=== PATIENT | male | born 1955 | race Caucasian/White ===

== ENCOUNTER 2017-04-10 14:37 | Inpatient (IN) ==
[2017-04-10 12:45] VITALS: BMI 19.8
[2017-04-10] MEDS: SALINE FLUSH 10ml SYRINGE IV PRN ×2 (13:24→16:10)
[~2017-04-10 14:37] MED LIST: NS 1,000 ML IV ONE
[2017-04-10] MEDS ORDERED: ACETAMINOPHEN 325 MG TABLET PO PRN (14:39)
--- NOTE | 2017-04-10 14:51 | History & Physical Report ---
History of Present Illness Date: 04/10/17 Chief complaint: cough, fever, shortness of breath HPI: Tunde is a 61-year-old male who is a direct admit from Dr. Acosta's office. He has known COPD and was found to have an abnormality on his chest x-ray prompting a CT scan of his chest in January. He was treated with 2 weeks of antibiotics and steroids and repeat CT showed a slight decrease in the abnormality, but given that it persisted, he was set up for lung biopsy. He had his lung biopsy scheduled yesterday the procedure was canceled because he had a fever. Today he started feeling worse and went to see Dr. Acosta. He states initially he felt like his symptoms which started a few weeks ago, were typical for COPD exacerbation, but with his fever and with the dark brown phlegm he's been producing, he was concerned for infection. His O2 sats have been in the mid 80s and he was found to have a temp 101.2 in the office. He was directly admitted from Dr. Acosta's office for probable influenza. Review of Systems All systems PM: 10-point ROS was reviewed, no additional remarkable complaints except (fever, weakness, chills, productive cough, shortness of breath, dysuria) Past Medical History Medical History COPD Abnormal CT chest - lung biopsy pending BPH Depression Surgical History: R knee surgery early . left elbow surgery in 1994. Heart cath-negative (11/07) Family History: Father-living, alcoholism, prostate cancer Mother-alive and well Brother-prostate cancer Family History Updates: Updated - Social History Smoking status: Current every day smoker (assessment since age 17. Currently smokes 10 cigarettes per day) Substance use type: does not use Alcohol intake frequency: does not drink Housing: house Household members: spouse, family ([id number]. 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 Medications Home Medications Medication Instructions Recorded Confirmed Type albuterol sulfate HFA 90 2 puff INH PRN PRN 16 Days #18 09/05/16 04/10/17 History mcg/actuation aerosol inhaler Albuterol Sulfate 1.25 mg INH Q6H PRN 04/10/17 04/10/17 History Doxazosin [Cardura] 4 tab PO DAILY 04/10/17 04/10/17 History beclomethasone dipropionate 80 2 puff INH BID 30 Days #87 04/10/17 04/10/17 History mcg/actuation aerosol inhaler Allergies Allergy/AdvReac Type Severity Reaction Status Date / Time propoxyphene Allergy Mild stomach Verified 04/10/17 11:18 [From Darvocet-N 100] cramping Exam Vital Signs: Temperature 102.1 F H 04/10/17 12:43 Pulse Rate 102 H 04/10/17 13:27 Respiratory Rate 20 04/10/17 13:27 Blood Pressure 122/82 04/10/17 13:27 Pulse Oximetry 95 04/10/17 13:27 Height/Weight/BMI: Height 1.68 m Weight 55.8 kg Body Mass Index 19.8 - Constitutional Present: no acute distress, well developed, thin - Routine HEENT Exam Head: Present: normocephalic, atraumatic Eye: Present: EOMI. Absent: periorbital swelling ENT: Present: nares patent, external ear normal - Routine Neck Exam Present: supple. Absent: lymphadenopathy, thyromegaly - Routine Respiratory Exam Present: decreased breath sounds, wheezes, diminished air movement - Routine Cardiovascular Exam Present: tachycardia (mild). Absent: murmur - Routine Abdominal Exam Present: soft, normoactive bowel sounds, non distended. Absent: tenderness - Routine Extremities Exam Present: no edema, normal capillary refill - Routine Skin Exam Present: dry, warm - Routine Neurological Exam Present: alert, oriented X3 CN III-XII intact - Routine Psychiatric Exam Present: normal affect, cooperative Results - Labs CBC & Chem 7: 04/10/17 15:01 04/10/17 15:01 Assessment and Plan (1) COPD exacerbation Current visit: Yes Status: Acute Assessment and Plan: Assessment Sepsis as manifested by a pulmonary source of infection and SIRS criteria of temp of 102.1 and tachycardia. Influenza B COPD exacerbation with acute hypoxia RUL pulmonary nodule - lung biopsy pending Dysuria BPH Depression Plan Admit inpatient status to the hospitalist service for COPD exacerbation with hypoxia, Dr. Ferreira attending. Respiratory panel pending. Sputum culture. Tamiflu 75 twice a day 5 days Solu-Medrol 125 mg IV every 8 hours, DuoNeb and budesonide nebulizer treatments , Acapella for respiratory symptoms. RT consult for smoking cessation. CBC, CMP, lactate, pro calcitonin, urinalysis for laboratory workup. MiraLAX for bowel motivation. Patient was bolused a liter of normal saline and continues at 75 mL per hour. SCDs and Lovenox for VTE prophylaxis Protonix IV for GI prophylaxis given steroid use. Patient wishes to be a full code. Care to return to Dr. Acosta on dismissal DVT Prophylaxis: SCD's, Lovenox GI Prophylaxis: Protonix Resuscitation Status: Full Code - Physician Narrative Physician: Hali Ferreira MD Narrative: Date: 04/10/17 Time: 2044 I have independently evaluated and examined this patient. I reviewed the chart, the patient's history, and the [employer]/PA's documented findings as above. We discussed and formulated the assessment and plan as above with additions as below: Mr. Garcia was seen with his at bedside. Case was discussed with Dr. Acosta earlier in the day. Patient and/or his report that he's been ill for about a week but fevers escalated significantly over the past 2 days. He describes dyspnea, cough, sputum production. Cough is forceful enough to cause lightheadedness and chest wall/abdominal muscle pain. He describes generalized myalgias and loss of appetite with illness. Temperature in the office today was 101.2 and oxygen saturation was 85% on room air although patient has no history of chronic hypoxia or need for supplemental oxygen. On arrival at the hospital oxygen saturation was 86% on room air. Temperature on admission was 102.1 increasing to 103.2 3 hours later. Patient is alert and cooperative but appears uncomfortable; oropharynx with white plaques consistent with thrush Respirations are nonlabored with decreased airflow, there is diffuse generalized wheezing; crackles are not appreciated Regular rhythm, S1-S2, low-grade tachycardia present Extremities without edema Chest x-ray reviewed by myself-consistent with COPD but no infiltrate or evidence of failure, faint nodule evident in the right upper lobe-radiology reports it smaller (now measuring 1 cm) than it was on prior film in January. Influenza B +; sputum Gram stain with moderate neutrophils and many gram- positive cocci resembling strep pneumo UA with trace ketones and +2 occult blood Calcium 7.8 with albumin 3.6, lactic acid 0.9, procalcitonin < 0.05 Indications plans outlined above-initiate Clotrimazole troches for thrush and Rocephin for probable strep pneumo bronchitis pending full identification. Discussed with Dr. Acosta. Hospital Course Summary Disclaimer: The visit summary below is not to be considered part of the above Progress Note. Hospital Course: Assessment Sepsis as manifested by a pulmonary source of infection and SIRS criteria of temp of 102.1 and tachycardia. Influenza B COPD exacerbation with hypoxia RUL nodule - lung biopsy pending Dysuria BPH Depression Thrush 04/10/17-hospital admission Admit inpatient status to the hospitalist service for COPD exacerbation with hypoxia, Dr. Ferreira attending. Respiratory panel pending. Sputum culture suggests strep pneumonia-Rocephin initiated. Tamiflu 75 twice a day 5 days Solu-Medrol 125 mg IV every 8 hours, DuoNeb and budesonide nebulizer treatments , Acapella for respiratory symptoms. RT consult for smoking cessation. CBC, CMP, lactate, pro calcitonin, urinalysis for laboratory workup. MiraLAX for bowel motivation. Mycelex troches for thrush. Patient was bolused a liter of normal saline and continues at 75 mL per hour. SCDs and Lovenox for VTE prophylaxis Protonix IV for GI prophylaxis given steroid use. Patient wishes to be a full code. Care to return to Dr. Acosta on dismissal
[2017-04-10] MEDS: NS 1,000 ML IV SCH (15:27)
[2017-04-10] MEDS: METHYLPREDNISOLONE SOD SUCC 125mg/2ml INJECTION IVP SCH ×2 (15:27→22:05)
[2017-04-10] MEDS: ALBUTEROL/IPRATROPIUM 2.5mg-0.5mg/3ml NEB AEROSOL SCH ×2 (15:47→20:35)
[2017-04-10] MEDS: PANTOPRAZOLE 40 MG INJECTION IVP SCH (16:09)
[2017-04-10] MEDS ORDERED: IBUPROFEN 600 MG TABLET PO PRN (17:21)
[2017-04-10] MEDS: CLOTRIMAZOLE 10 MG TROCHE MM SCH ×2 (18:23→22:06)
[2017-04-10] MEDS: BUDESONIDE INH.SOLN 0.5mg/2ml NEB AEROSOL SCH (20:35)
[2017-04-10] MEDS ORDERED: CEFTRIAXONE 1 G in NS 100 ML IV SCH (21:15)
[2017-04-11] MEDS: NS 1,000 ML IV SCH ×2 (05:42→20:29)
[2017-04-11] MEDS: ALBUTEROL/IPRATROPIUM 2.5mg-0.5mg/3ml NEB AEROSOL SCH ×4 (06:32→19:46)
[2017-04-11] MEDS: BUDESONIDE INH.SOLN 0.5mg/2ml NEB AEROSOL SCH ×2 (06:33→19:46)
[2017-04-11] MEDS: METHYLPREDNISOLONE SOD SUCC 125mg/2ml INJECTION IVP SCH ×3 (07:31→22:21)
[2017-04-11] MEDS: PANTOPRAZOLE 40 MG INJECTION IVP SCH (09:37)
[2017-04-11] MEDS: CEFTRIAXONE 1 G in NS 100 ML IV SCH (09:38)
[2017-04-11] MEDS: DOXAZOSIN 4 MG TABLET PO SCH (09:38)
[2017-04-11] MEDS: CLOTRIMAZOLE 10 MG TROCHE MM SCH ×5 (09:39→21:44)
[2017-04-11] MEDS: POLYETHYL GLYCOL 3350 17gm PACKET PO SCH (09:40)
[2017-04-11] MEDS: SERTRALINE 100 MG TABLET PO SCH (09:40)
[2017-04-11] MEDS: ENOXAPARIN 40 MG/0.4 ML INJECTION SQ SCH (11:03)
--- NOTE | 2017-04-11 11:09 | Progress Note ---
- Date 04/11/17 Subjective: Patient is seen sitting in bed eating breakfast. He looks much better. He does feel better but continues to have problems with his breathing. Continues on 2 L of oxygen. No chest pain, nausea or vomiting. Fever broke last evening. Objective Vital signs: Temperature 96.3 F L 04/11/17 08:05 Pulse Rate 73 04/11/17 08:05 Respiratory Rate 22 04/11/17 10:49 Blood Pressure 115/68 04/11/17 08:05 Pulse Oximetry 97 04/11/17 10:49 Height/Weight/BMI: Height 1.68 m Weight 55.5 kg Body Mass Index 19.8 - Constitutional Present: well nourished, well developed, thin - Routine HEENT Exam Head: Present: normocephalic, atraumatic - Routine Respiratory Exam Present: decreased breath sounds, wheezes (expiratory. He is moving air much better today.) - Routine Cardiovascular Exam Present: RRR. Absent: murmur - Routine Abdominal Exam Present: soft, normoactive bowel sounds, non distended. Absent: tenderness - Routine Extremities Exam Present: no edema, normal capillary refill - Routine Skin Exam Present: dry, warm - Routine Neurological Exam Present: alert, oriented X3 - Routine Lymphatic Exam Lymphatic: Absent: adenopathy - Routine Psychiatric Exam Present: normal affect, cooperative Results - Labs CBC & Chem 7: 04/11/17 05:43 04/11/17 05:43 Microbiology Results: Microbiology 04/10/17 15:49 Sputum, Expectorated Gram Stain - Final 04/10/17 15:49 Sputum, Expectorated Sputum Culture - Preliminary Early growth 04/10/17 15:30 Peripheral/Iv Start Blood Culture - Preliminary Culture Initiated - Results Pending 04/10/17 15:33 Peripheral/Iv Start Blood Culture - Preliminary Culture Initiated - Results Pending Assessment and Plan (1) COPD exacerbation Current visit: Yes Status: Acute Assessment and Plan: Assessment Sepsis as manifested by a pulmonary source of infection and SIRS criteria of temp of 102.1 and tachycardia. Influenza B Possible strep pneumoniae based on sputum gram stain-sputum culture pending COPD exacerbation with acute hypoxia RUL pulmonary nodule - lung biopsy pending Dysuria BPH Depression Plan Sputum with gram stain shows many gram-positive cocci resembling strep pneumoniae. Patient was given a dose of Rocephin 1 g last evening and this will be continued daily until sputum culture is resulted. Continue breathing treatments, Tamiflu and IV steroids. May consider decreasing steroid dose later today or tomorrow. Add guaifenesin and hypertonic saline per nebulizer for secretion mobilization. Labs reviewed. Vital signs stable. DVT Prophylaxis: Lovenox Resuscitation Status: Full Code - Physician Narrative Physician: Hali Ferreira MD Narrative: Date: 04/11/17 Time: 2129 I have independently evaluated and examined this patient. I reviewed the chart, the patient's history, and the EMERGENCY REGISTRAR/PA's documented findings as above. We discussed and formulated the assessment and plan as above with additions as below: Tunde continues to have exertional dyspnea and some wheezing with cough. Fever has resolved and achiness/myalgias are improved although not entirely corrected. He remains on 1.5-2 L supplemental oxygen. NAD, alert Respirations are nonlabored with good airflow but diffuse wheezing persists Regular rhythm, no edema Sputum culture as previously noted-suspicious for strep pneumonia based on Gram stain 13% bands on differential today Begin titrating steroids and oxygen; day 2 Tamiflu. Discontinue IV PPI --> Pepcid Hospital Course Summary Disclaimer: The visit summary below is not to be considered part of the above Progress Note. Hospital Course: Assessment Sepsis as manifested by a pulmonary source of infection and SIRS criteria of temp of 102.1 and tachycardia. Influenza B COPD exacerbation with hypoxia RUL nodule - lung biopsy pending Dysuria BPH Depression Thrush 04/10/17-hospital admission Admit inpatient status to the hospitalist service for COPD exacerbation with hypoxia, Dr. Ferreira attending. Respiratory panel pending. Sputum culture suggests strep pneumonia-Rocephin initiated. Tamiflu 75 twice a day 5 days Solu-Medrol 125 mg IV every 8 hours, DuoNeb and budesonide nebulizer treatments , Acapella for respiratory symptoms. RT consult for smoking cessation. CBC, CMP, lactate, pro calcitonin, urinalysis for laboratory workup. MiraLAX for bowel motivation. Mycelex troches for thrush. Patient was bolused a liter of normal saline and continues at 75 mL per hour. SCDs and Lovenox for VTE prophylaxis Protonix IV for GI prophylaxis given steroid use. Patient wishes to be a full code. Care to return to Dr. Acosta on dismissal 04/11/17 Sputum with gram stain shows many gram-positive cocci resembling strep pneumoniae. Patient was given a dose of Rocephin 1 g last evening and this will be continued daily until sputum culture is resulted. Continue breathing treatments, Tamiflu and IV steroids. May consider decreasing steroid dose later today or tomorrow. Add guaifenesin and hypertonic saline per nebulizer for secretion mobilization.
[2017-04-11] MEDS: GUAIFENESIN LA 600 MG TABLET PO SCH ×2 (12:03→21:44)
[2017-04-11] MEDS: SODIUM CL 7% INHAL. SOLN 4ml NEB AEROSOL SCH ×2 (17:01→19:46)
[2017-04-12] MEDS: METHYLPREDNISOLONE SOD SUCC 125mg/2ml INJECTION IVP SCH (06:16)
[2017-04-12] MEDS: BUDESONIDE INH.SOLN 0.5mg/2ml NEB AEROSOL SCH ×2 (06:36→19:46)
[2017-04-12] MEDS: ALBUTEROL/IPRATROPIUM 2.5mg-0.5mg/3ml NEB AEROSOL SCH ×4 (06:36→19:46)
[2017-04-12] MEDS: SODIUM CL 3% INHAL.SOLN 15ml NEB AEROSOL SCH ×2 (06:36→19:46)
[2017-04-12] MEDS: POLYETHYL GLYCOL 3350 17gm PACKET PO SCH ×2 (09:43→09:57)
[2017-04-12] MEDS: CLOTRIMAZOLE 10 MG TROCHE MM SCH ×5 (09:44→22:05)
[2017-04-12] MEDS: ENOXAPARIN 40 MG/0.4 ML INJECTION SQ SCH (09:44)
[2017-04-12] MEDS: DOXAZOSIN 4 MG TABLET PO SCH (09:44)
[2017-04-12] MEDS: SERTRALINE 100 MG TABLET PO SCH (09:45)
[2017-04-12] MEDS: GUAIFENESIN LA 600 MG TABLET PO SCH ×2 (09:45→22:04)
[2017-04-12] MEDS: FAMOTIDINE 20 MG TABLET PO SCH ×2 (09:45→22:05)
[2017-04-12] MEDS: CEFTRIAXONE 1 G in NS 100 ML IV SCH (09:46)
[2017-04-12] MEDS: NS 1,000 ML IV SCH (09:59)
--- NOTE | 2017-04-12 12:08 | Progress Note ---
- Date 04/12/17 Subjective: Feeling a little better but still short of air, weak, muscle aches. Eating okay. Not getting up and around much. Objective Vital signs: Temperature 95.7 F L 04/12/17 08:41 Pulse Rate 73 04/12/17 08:41 Respiratory Rate 18 04/12/17 10:26 Blood Pressure 121/71 04/12/17 08:41 Pulse Oximetry 95 04/12/17 10:26 Height/Weight/BMI: Height 1.68 m Weight 57.4 kg Body Mass Index 19.8 - Constitutional Present: no acute distress, obese, cooperative - Routine HEENT Exam Head: Present: normocephalic, atraumatic Eye: Present: PERRL. Absent: conjunctival icterus ENT: Present: mucous membranes moist, oropharynx clear - Routine Respiratory Exam Present: dyspnea, decreased breath sounds, rhonchi. Absent: wheezes - Routine Cardiovascular Exam Present: RRR. Absent: murmur - Routine Abdominal Exam Present: soft, non distended, non tender - Routine Extremities Exam Present: pulses intact. Absent: edema - Routine Skin Exam Present: dry, warm. Absent: rash - Routine Neurological Exam Present: alert, moving all extremities, normal speech - Routine Psychiatric Exam Present: normal affect Results - Labs CBC & Chem 7: 04/12/17 04:24 04/11/17 05:43 Microbiology Results: Microbiology 04/10/17 15:49 Sputum, Expectorated Gram Stain - Final 04/10/17 15:49 Sputum, Expectorated Sputum Culture - Preliminary Gram Negative [place] Streptococcus pneumoniae 04/10/17 15:33 Peripheral/Iv Start Blood Culture - Preliminary No Growth After 1 Day 04/10/17 15:30 Peripheral/Iv Start Blood Culture - Preliminary No Growth After 1 Day Assessment and Plan Assessment and Plan: Assessment Sepsis as manifested by a pulmonary source of infection and SIRS criteria of temp of 102.1 and tachycardia. Influenza B Possible strep pneumoniae based on sputum gram stain-final sputum culture pending COPD exacerbation with acute hypoxia; improving with supportive care RUL pulmonary nodule - lung biopsy pending Dysuria BPH Depression Normocytic anemia Plan Sputum with gram stain shows many gram-positive cocci resembling strep pneumoniae. Continue rocephin pending further culture results. Continue breathing treatments, Tamiflu and steroids but will transition to po prednisone today and stop IV solumedrol. Labs reviewed. Vital signs stable. Check renal panel and CBC in AM. Will hold further IVF this evening and monitor with po intake. Encouraged ambulation as able with 02 support. DVT Prophylaxis: SCD's GI Prophylaxis: Protonix Resuscitation Status: Full Code - Physician Narrative Physician: Joanie Browne MD Narrative: Date: 04/12/17 Time: 1204 Hospital Course Summary Disclaimer: The visit summary below is not to be considered part of the above Progress Note. Hospital Course: Assessment Sepsis as manifested by a pulmonary source of infection and SIRS criteria of temp of 102.1 and tachycardia. Influenza B COPD exacerbation with hypoxia RUL nodule - lung biopsy pending Dysuria BPH Depression Thrush 04/10/17-hospital admission Admit inpatient status to the hospitalist service for COPD exacerbation with hypoxia, Dr. Ferreira attending. Respiratory panel pending. Sputum culture suggests strep pneumonia-Rocephin initiated. Tamiflu 75 twice a day 5 days Solu-Medrol 125 mg IV every 8 hours, DuoNeb and budesonide nebulizer treatments , Acapella for respiratory symptoms. RT consult for smoking cessation. CBC, CMP, lactate, pro calcitonin, urinalysis for laboratory workup. MiraLAX for bowel motivation. Mycelex troches for thrush. Patient was bolused a liter of normal saline and continues at 75 mL per hour. SCDs and Lovenox for VTE prophylaxis Protonix IV for GI prophylaxis given steroid use. Patient wishes to be a full code. Care to return to Dr. Acosta on dismissal 04/11/17 Sputum with gram stain shows many gram-positive cocci resembling strep pneumoniae. Patient was given a dose of Rocephin 1 g last evening and this will be continued daily until sputum culture is resulted. Continue breathing treatments, Tamiflu and IV steroids. May consider decreasing steroid dose later today or tomorrow. Add guaifenesin and hypertonic saline per nebulizer for secretion mobilization. 04/12/17 Sputum with gram stain shows many gram-positive cocci resembling strep pneumoniae. Continue rocephin pending further culture results. Continue breathing treatments, Tamiflu and steroids but will transition to po prednisone today and stop IV solumedrol. Labs reviewed. Vital signs stable. Check renal panel and CBC in AM. Will hold further IVF this evening and monitor with po intake. Encouraged ambulation as able with 02 support.
[2017-04-12] MEDS: SALINE FLUSH 10ml SYRINGE IV PRN (22:06)
[2017-04-13] MEDS ORDERED: ALBUTEROL 2.5mg/3ml (0.083%) NEB IPPB PRN (04:22)
[2017-04-13] MEDS: LORazepam 0.5 MG TABLET PO PRN ×2 (08:10→21:52)
[2017-04-13] MEDS: ENOXAPARIN 40 MG/0.4 ML INJECTION SQ SCH (08:10)
[2017-04-13] MEDS: SERTRALINE 100 MG TABLET PO SCH (08:10)
[2017-04-13] MEDS: PredniSONE 20 MG TABLET PO SCH (08:10)
[2017-04-13] MEDS: CLOTRIMAZOLE 10 MG TROCHE MM SCH ×5 (08:10→21:52)
[2017-04-13] MEDS: FAMOTIDINE 20 MG TABLET PO SCH ×2 (08:11→21:52)
[2017-04-13] MEDS: DOXAZOSIN 4 MG TABLET PO SCH (08:11)
[2017-04-13] MEDS: GUAIFENESIN LA 600 MG TABLET PO SCH (08:12)
[2017-04-13] MEDS: POLYETHYL GLYCOL 3350 17gm PACKET PO SCH (08:12)
[2017-04-13] MEDS: ALBUTEROL/IPRATROPIUM 2.5mg-0.5mg/3ml NEB AEROSOL SCH ×4 (08:34→18:59)
[2017-04-13] MEDS: BUDESONIDE INH.SOLN 0.5mg/2ml NEB AEROSOL SCH ×2 (08:37→18:59)
[2017-04-13] MEDS: CEFTRIAXONE 1 G in NS 100 ML IV SCH (08:39)
[2017-04-13] MEDS: SODIUM CL 3% INHAL.SOLN 15ml NEB AEROSOL SCH ×2 (12:23→18:59)
--- NOTE | 2017-04-13 12:36 | Progress Note ---
- Date 04/13/17 Subjective: Still very short of air this morning, in some distress upon awakening. Requiring very little 02 but feels dyspneic. Received a dose of ativan this morning and that has helped some. at bedside on my second visit; discussed care, antibiotics, results of cultures. Continues on rocephin; sputum with klebsiella and strep pneumo, both susceptible to the med. Bowels moving. Eating some. Wants to get home soon but we discussed that COPD + influenza + bacterial pneumonia is going to require some time to improve. Objective Vital signs: Temperature 96.9 F 04/12/17 23:40 Pulse Rate 67 04/13/17 07:47 Respiratory Rate 14 04/13/17 12:24 Blood Pressure 135/79 04/13/17 07:47 Pulse Oximetry 94 04/13/17 08:45 Height/Weight/BMI: Height 1.68 m Weight 59.4 kg Body Mass Index 19.8 - Constitutional Present: mild distress, cooperative - Routine HEENT Exam Head: Present: normocephalic, atraumatic Eye: Present: PERRL. Absent: conjunctival icterus ENT: Present: mucous membranes moist, oropharynx clear - Routine Respiratory Exam Present: accessory muscle use, dyspnea, prolonged expiratory phase, wheezes. Absent: rhonchi, crackles - Routine Cardiovascular Exam Present: RRR. Absent: murmur - Routine Abdominal Exam Present: soft, non distended, non tender - Routine Extremities Exam Present: no edema - Routine Skin Exam Present: dry, warm. Absent: rash - Routine Neurological Exam Present: alert, oriented X3, normal speech - Routine Psychiatric Exam Present: anxious Results - Labs CBC & Chem 7: 04/13/17 05:17 04/13/17 05:17 Microbiology Results: Microbiology 04/10/17 15:49 Sputum, Expectorated Gram Stain - Final 04/10/17 15:49 Sputum, Expectorated Sputum Culture - Final Klebsiella oxytoca Streptococcus pneumoniae 04/10/17 15:33 Peripheral/Iv Start Blood Culture - Preliminary No Growth After 2 Days 04/10/17 15:30 Peripheral/Iv Start Blood Culture - Preliminary No Growth After 2 Days Assessment and Plan Assessment and Plan: Assessment Sepsis as manifested by a pulmonary source of infection and SIRS criteria of temp of 102.1 and tachycardia. Influenza B + Klebsiella + strep pneumo on sputum culture, treating CAP with rocephin currently COPD exacerbation with acute hypoxia; improving with supportive care but still with little reserve RUL pulmonary nodule - lung biopsy pending Dysuria BPH Depression Normocytic anemia Plan Sputum culture results reviewed and + klebsiella and strep pneumo, both sensitive to rocephin--will continue. Continue breathing treatments, Tamiflu and steroids (po prednisone) Labs reviewed. Vital signs stable. Check renal panel and CBC in AM. Continue off of IVF. Added ativan for increased work of breathing, will use 0.5 mg prn. Encouraged ambulation as able with 02 support. Stopped mucinex at his request as he feels it makes him worse. Doxazosin dose adjusted as he takes 4 mg daily at home. DVT Prophylaxis: Lovenox Resuscitation Status: Full Code - Physician Narrative Narrative: Date: 04/13/17 Time: 1233 Hospital Course Summary Disclaimer: The visit summary below is not to be considered part of the above Progress Note. Hospital Course: Assessment Sepsis as manifested by a pulmonary source of infection and SIRS criteria of temp of 102.1 and tachycardia. Influenza B COPD exacerbation with hypoxia RUL nodule - lung biopsy pending Dysuria BPH Depression Thrush 04/10/17-hospital admission Admit inpatient status to the hospitalist service for COPD exacerbation with hypoxia, Dr. Ferreira attending. Respiratory panel pending. Sputum culture suggests strep pneumonia-Rocephin initiated. Tamiflu 75 twice a day 5 days Solu-Medrol 125 mg IV every 8 hours, DuoNeb and budesonide nebulizer treatments , Acapella for respiratory symptoms. RT consult for smoking cessation. CBC, CMP, lactate, pro calcitonin, urinalysis for laboratory workup. MiraLAX for bowel motivation. Mycelex troches for thrush. Patient was bolused a liter of normal saline and continues at 75 mL per hour. SCDs and Lovenox for VTE prophylaxis Protonix IV for GI prophylaxis given steroid use. Patient wishes to be a full code. Care to return to Dr. Acosta on dismissal 04/11/17 Sputum with gram stain shows many gram-positive cocci resembling strep pneumoniae. Patient was given a dose of Rocephin 1 g last evening and this will be continued daily until sputum culture is resulted. Continue breathing treatments, Tamiflu and IV steroids. May consider decreasing steroid dose later today or tomorrow. Add guaifenesin and hypertonic saline per nebulizer for secretion mobilization. 04/12/17 Sputum with gram stain shows many gram-positive cocci resembling strep pneumoniae. Continue rocephin pending further culture results. Continue breathing treatments, Tamiflu and steroids but will transition to po prednisone today and stop IV solumedrol. Labs reviewed. Vital signs stable. Check renal panel and CBC in AM. Will hold further IVF this evening and monitor with po intake. Encouraged ambulation as able with 02 support. 04/13/17 Sputum culture results reviewed and + klebsiella and strep pneumo, both sensitive to rocephin--will continue. Continue breathing treatments, Tamiflu and steroids (po prednisone) Labs reviewed. Vital signs stable. Check renal panel and CBC in AM. Continue off of IVF. Added ativan for increased work of breathing, will use 0.5 mg prn. Encouraged ambulation as able with 02 support. Stopped mucinex at his request as he feels it makes him worse. Doxazosin dose adjusted as he takes 4 mg daily at home.
[2017-04-13] MEDS: SALINE FLUSH 10ml SYRINGE IV PRN (21:52)
[2017-04-14] MEDS: SALINE FLUSH 10ml SYRINGE IV PRN (05:50)
[2017-04-14] MEDS: PredniSONE 20 MG TABLET PO SCH (08:25)
[2017-04-14] MEDS: ENOXAPARIN 40 MG/0.4 ML INJECTION SQ SCH (08:25)
[2017-04-14] MEDS: SERTRALINE 100 MG TABLET PO SCH (08:25)
[2017-04-14] MEDS: FAMOTIDINE 20 MG TABLET PO SCH (08:25)
[2017-04-14] MEDS: CEFTRIAXONE 1 G in NS 100 ML IV SCH (08:26)
[2017-04-14] MEDS: CLOTRIMAZOLE 10 MG TROCHE MM SCH ×3 (08:26→16:36)
[2017-04-14] MEDS: POLYETHYL GLYCOL 3350 17gm PACKET PO SCH (08:27)
[2017-04-14] MEDS: LORazepam 0.5 MG TABLET PO PRN (08:30)
[2017-04-14] MEDS ORDERED: DOXAZOSIN 4 MG TABLET PO SCH (09:00)
[2017-04-14] MEDS: ALBUTEROL/IPRATROPIUM 2.5mg-0.5mg/3ml NEB AEROSOL SCH ×3 (11:26→17:40)
[2017-04-14] MEDS: BUDESONIDE INH.SOLN 0.5mg/2ml NEB AEROSOL SCH (11:26)
[2017-04-14] MEDS: SODIUM CL 3% INHAL.SOLN 15ml NEB AEROSOL SCH (13:24)
--- NOTE | 2017-04-14 14:28 | Discharge Summary ---
Discharge Information Date of admission: 04/10/17 14:37 Anticipated date of discharge: 04/14/17 Attending Physician: Hali Ferreira MD Primary care physician: Romie Acosta, DO - Discharge Diagnosis (1) COPD exacerbation Status: Acute Sepsis as manifested by a pulmonary source of infection and SIRS criteria of temp of 102.1 and tachycardia. Influenza B + Klebsiella + strep pneumo on sputum culture, treating CAP with rocephin currently. Switch to Levaquin on discharge. COPD exacerbation with acute hypoxia; improving with supportive care but still with little reserve RUL pulmonary nodule - lung biopsy pending Dysuria BPH Depression Normocytic anemia - Laboratory Labs: 04/14/17 03:56 04/14/17 03:56 Positive influenza B Urinalysis - 2+ blood on dip, 10-20 RBCs on micro. - Microbiology Microbiology 04/10/17 blood culture-preliminary shows no growth by day 3 04/10/17 15:49 Sputum, Expectorated Sputum Culture - Final Klebsiella oxytoca Streptococcus pneumoniae --sensitivities show both bacteria to be sensitive to levofloxacin History of Present Illness HPI: Tunde is a 61-year-old male who is a direct admit from Dr. Acosta's office. He has known COPD and was found to have an abnormality on his chest x-ray prompting a CT scan of his chest in January. He was treated with 2 weeks of antibiotics and steroids and repeat CT showed a slight decrease in the abnormality, but given that it persisted, he was set up for lung biopsy. He had his lung biopsy scheduled yesterday the procedure was canceled because he had a fever. Today he started feeling worse and went to see Dr. Acosta. He states initially he felt like his symptoms which started a few weeks ago, were typical for COPD exacerbation, but with his fever and with the dark brown phlegm he's been producing, he was concerned for infection. His O2 sats have been in the mid 80s and he was found to have a temp 101.2 in the office. He was directly admitted from Dr. Acosta's office for probable influenza. Objective Vital signs: Temperature 95.5 F L 04/14/17 08:00 Pulse Rate 75 04/14/17 13:26 Respiratory Rate 18 04/14/17 11:55 Blood Pressure 128/87 04/14/17 08:00 Pulse Oximetry 91 04/14/17 13:26 Height/Weight/BMI: Height 1.68 m Weight 55.6 kg Body Mass Index 19.8 - Constitutional Present: no acute distress, well developed - Routine HEENT Exam Head: Present: normocephalic, atraumatic - Routine Respiratory Exam Present: decreased breath sounds, wheezes - Routine Cardiovascular Exam Present: RRR, no murmur - Routine Abdominal Exam Present: soft, non distended, non tender - Routine Extremities Exam Present: no edema, normal capillary refill - Routine Skin Exam Present: dry, warm - Routine Neurological Exam Present: alert, oriented X3 - Routine Lymphatic Exam Lymphatic: Absent: adenopathy - Routine Psychiatric Exam Present: normal affect, cooperative Hospital Course This is a general summary of the patient's hospital course. For more details refer to the complete medical record. Hospital course: 04/10/17-hospital admission Admit inpatient status to the hospitalist service for COPD exacerbation with hypoxia, Dr. Ferreira attending. Respiratory panel pending. Sputum culture suggests strep pneumonia-Rocephin initiated. Tamiflu 75 twice a day 5 days Solu-Medrol 125 mg IV every 8 hours, DuoNeb and budesonide nebulizer treatments , Acapella for respiratory symptoms. RT consult for smoking cessation. CBC, CMP, lactate, pro calcitonin, urinalysis for laboratory workup. MiraLAX for bowel motivation. Mycelex troches for thrush. Patient was bolused a liter of normal saline and continues at 75 mL per hour. SCDs and Lovenox for VTE prophylaxis Protonix IV for GI prophylaxis given steroid use. Patient wishes to be a full code. Care to return to Dr. Acosta on dismissal 04/11/17 Sputum with gram stain shows many gram-positive cocci resembling strep pneumoniae. Patient was given a dose of Rocephin 1 g last evening and this will be continued daily until sputum culture is resulted. Continue breathing treatments, Tamiflu and IV steroids. May consider decreasing steroid dose later today or tomorrow. Add guaifenesin and hypertonic saline per nebulizer for secretion mobilization. 04/12/17 Sputum with gram stain shows many gram-positive cocci resembling strep pneumoniae. Continue rocephin pending further culture results. Continue breathing treatments, Tamiflu and steroids but will transition to po prednisone today and stop IV solumedrol. Labs reviewed. Vital signs stable. Check renal panel and CBC in AM. Will hold further IVF this evening and monitor with po intake. Encouraged ambulation as able with 02 support. 04/13/17 Sputum culture results reviewed and + klebsiella and strep pneumo, both sensitive to rocephin--will continue. Continue breathing treatments, Tamiflu and steroids (po prednisone) Labs reviewed. Vital signs stable. Check renal panel and CBC in AM. Continue off of IVF. Added ativan for increased work of breathing, will use 0.5 mg prn. Encouraged ambulation as able with 02 support. Stopped mucinex at his request as he feels it makes him worse. Doxazosin dose adjusted as he takes 4 mg daily at home. 04/14/17 Patient being discharged home today. He will continue to need oxygen at 1 L during the day as he drops below 90% with ambulation. Finish course of Tamiflu-only has 2 doses left. Continue taper dose of steroids. Resume home inhalers and continue breathing treatments. Labs are stable. Prescription for Ativan as he had good results with this in regard to his dyspnea. Prescription for Levaquin 750 mg to take daily for another 5 days for coverage of the Klebsiella and strep pneumoniae in sputum. See Dr. Acosta next week. Time spent with patient: greater than 35 minutes Resuscitation Status: Full Code Discharge Plan - Discharge Disposition Discharge Date: 04/14/17 Disposition: Discharged Home, Self-Care *Condition: Stable Reason For Visit (Visit label in EMR): copd exac , poss influenza - Discharge Medications *Discharge Medications: New LORazepam [Ativan] 0.5 mg PO Q4H PRN #20 tab PRN Reason: Dyspnea Oseltamivir Cap [Tamiflu] 75 mg PO BID #2 cap Levofloxacin [Levaquin] 750 mg PO DAILY #5 tab PredniSONE [Deltasone] 40 mg PO WB #11 tab Continue Doxazosin [Cardura] 1 tab PO DAILY Albuterol Sulfate 1.25 mg INH Q6H PRN PRN Reason: COPD albuterol sulfate HFA 90 mcg/actuation aerosol inhaler 2 puff INH PRN PRN 16 Days #18 PRN Reason: COPD beclomethasone dipropionate 80 mcg/actuation aerosol inhaler 2 puff INH BID 30 Days #87 Spiriva with HandiHaler (tiotropium bromide) 18 mcg capsule with inhalation device 18 mcg INH DAILY #90 puff Zoloft (sertraline) 100 mg tablet 100 mg PO DAILY #30 tab - Discharge Packet/Instructions *Diet: Regular diet *Activity: As tolerated *Pain Management/Treatment: N/a *Wound Care: N/a Additional Instructions: Finish Tamiflu. You only have 2 doses left to take tonight and in the morning. Levaquin is an antibiotic to take daily for 5 days. Prednisone should be taken 2 pills daily starting tomorrow morning through April 17. On April 18 decrease to 1 pill daily through April 22. *Expected Signs/Symptoms: Improving strength and improvement with breathing *Notify Physician if: You develop fever or increasing shortness of breath *During Business Hours Contact: Dr. Acosta *After Business Hours Contact: Dr. Acosta's office and follow after hour instructions *Pending Lab/Results: No Pending Lab - Referrals/Follow Up *Referrals/Follow Up: Romie Acosta DO [Family Provider] - 04/22/17 9:30 am () - Patient Handouts Patient Handouts: Influenza (DC), COPD (Chronic Obstructive Pulmonary Disease) (GEN) - Dismissal Complete Discharge Instructions are:: Complete Physician Narrative - Narrative Attestation Narrative: Date: 04/14/17 Time: 230 I have independently evaluated and examined this patient. 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 We discussed and formulated the assessment and plan as above with additions as below: Mr. Garcia is much more comfortable and denies dyspnea with limited activities. He has minimal cough and was able to ambulate with initial oxygen saturation on room air of 91% although he desaturated after short distance to 87 % by his report requiring 2 L of oxygen to return saturation to above 90%. RT documented saturation of 88% while ambulating. Nonetheless portable oxygen will be needed at discharge home. Patient previously utilized nocturnal oxygen. He reports that oxygen saturation was previously dropped to 88-86% while walking at work on room air. NAD, alert Decreased breath sounds throughout with good airflow/inspiratory effort; breath sounds are clear Stable for discharge. Have recommended 2 L of supplemental oxygen with activities, continue nocturnal oxygen as previously prescribed. Oxygen saturation at rest 91% on room air so does not require continuous oxygen at this time. Discussed completion of Tamiflu-1 more day therapy. Titrate off of prednisone over the next couple of days.
[2017-04-14 15:44] VITALS: BP 120/81; PULSE 74; TEMP 96.5
[2017-04-14 17:41] VITALS: RESP 18; O2SAT 94
== END 2017-04-14 18:25 | disposition home or self-care (01) | DRG 871 ==
LOC: MED
PROVIDERS: ADMIT Internal Medicine; ATTEND Internal Medicine